=== PATIENT | female | born 1945 | race Caucasian/White ===

== ENCOUNTER → 2017-02-17 | Outpatient (CLI) | payer OTHER ==
--- NOTE | 2017-02-17 10:21 | RAD ---
Examination: X-rays of the left shoulder. Clinical history: Left shoulder pain, injured doing yard work. Technique: Three views of the left shoulder were obtained. Comparison: None available. Findings: There is a mildly comminuted, minimally displaced fracture of the proximal humerus. No additional bony or soft tissue abnormality is noted. Impression: 1. Fracture of the proximal left humerus, as described above. Reported By:
== END | disposition home or self-care (01) | DRG 556 ==
LOC: RAD 09:53
PROVIDERS: ATTEND Specialist
DX: M25.512 Pain in left shoulder (principal); M84.422A Pathological fracture, left humerus, initial encounter for fracture
CPT/HCPCS: 73030

== ENCOUNTER → 2017-02-23 | Outpatient (CLI) | payer OTHER ==
--- NOTE | 2017-02-23 12:34 | CT ---
CT left shoulder without contrast Indication: Left humeral fracture Comparison: 02/17/2017 Technique: 2 mm axial images with coronal and sagittal reformatted images of the left shoulder was pe rformed without IV contrast administration. Findings: There is a comminuted, minimally displaced fracture of the proximal left humerus involving the greater tuberosity the largest fracture fragment measures approximately 15 x 10 mm on coronal brianne ge 31. There is no fracture identified within the lesser tuberosity. No definite Hill-Sachs deformity is identified. The glenohumeral joint alignment is maintained. There is no subcortical cyst formatio n identified within the glenohumeral joint. There is no truncation of the anterior glenoid to suggest impaction injury or anterior dislocation. Coracoid process is normal. The AC joint is normal alignme nt with mild osteoarthrosis. No axillary adenopathy. No left-sided rib fracture is identified. Impression: 1.Comminuted fracture of the left humeral greater tuberosity with mild distraction of the tuberosity fracture fragments. There is no fracture extension into the lesser tuberosity or humeral neck. No CT evidence to suggest anterior or posterior dislocation injury. 2. 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 Reported By:
== END | disposition home or self-care (01) | DRG 561 ==
LOC: RAD 11:22
PROVIDERS: ATTEND Specialist
DX: S42.255 Nondisplaced fracture of greater tuberosity of left humerus (principal); X58.XXXS Exposure to other specified factors, sequela; M19.012 Primary osteoarthritis, left shoulder
CPT/HCPCS: 73200

== ENCOUNTER → 2017-03-16 | Outpatient (CLI) | payer OTHER ==
[2017-03-16 12:30] LABS: BASOPHILS # (AUTO) 0.2 X10^3/uL (0.0-0.1); BASOPHILS % (AUTO) 1.1 % (0.2-1.0); EOSINOPHILS # (AUTO) 0.4 x10^3/uL (0.0-0.2); EOSINOPHILS % (AUTO) 2.5 % (0.9-2.9); HEMATOCRIT 41.9 % (36.0-47.0); HEMOGLOBIN 14.4 g/dL (12.0-16.0); LYMPHOCYTES # (AUTO) 2.4 X10^3/uL (1.3-2.9); MEAN CORPUSCULAR HEMOGLOBIN 31.2 pg (27.0-34.0); MEAN CORPUSCULAR HGB CONC 34.3 g/dL (33.0-35.0); MEAN CORPUSCULAR VOLUME 90.8 fL (80.0-100.0); MEAN PLATELET VOLUME 8.3 fL (7.4-11.0); MONOCYTES # (AUTO) 1.1 x10^3/uL (0.3-0.8); MONOCYTES % (AUTO) 7.2 % (0.0-13.0); NEUTROPHILS # (AUTO) 11.7 x10^3/uL (2.2-4.8); NEUTROPHILS % (AUTO) 74.2 % (42.0-75.0); PLATELET COUNT 390 X10^3/uL (150.0-450.0); RED BLOOD COUNT 4.61 X10^6/uL (3.5-5.4); RED CELL DISTRIBUTION WIDTH 14.4 % (11.6-16.5); WHITE BLOOD COUNT 15.8 X10^3/uL (3.6-10.0)
[2017-03-16 12:31] LABS: BILIRUBIN,URINE NEGATIVE (NEGATIVE); BLOOD/HEMOGLOBIN,URINE 1+ (NEGATIVE); GLUCOSE, URINE NEGATIVE (NEGATIVE); KETONES,URINE NEGATIVE (NEGATIVE); LEUKOCYTE ESTERASE ,URINE 1+ (NEGATIVE); NITRITES,URINE NEGATIVE (NEGATIVE); PROTEIN,URINE 1+ (NEGATIVE); UROBILINOGEN,URINE NORMAL (NORMAL)
[2017-03-16 12:37] LABS: COLOR,URINE YELLOW (YELLOW)
[2017-03-16 12:38] LABS: APPEARANCE,URINE HAZY (CLEAR); BACTERIA,URINE TRACE /HPF (NEGATIVE); RBC,URINE 0-5 /HPF (NEGATIVE); SQUAMOUS EPITHELIAL CELL,UR RARE /HPF (NEGATIVE)
[2017-03-16 12:45] LABS: ALANINE AMINOTRANSFERASE 28 Units/L (12-78); ALBUMIN 4.3 g/dL (3.4-5.0); ALKALINE PHOSPHATASE 180 Units/L (46-116); ASPARTATE AMINO TRANSFERASE 23 Units/L (15-37); BLOOD UREA NITROGEN 21 mg/dL (7-18); CARBON DIOXIDE 28.4 mmol/L (21-32); CHLORIDE 94 mmol/L (98-107); COR NA(FOR HYPERGLY) 133 mmol/L (136-145); CREATININE 1.47 mg/dL (0.55-1.02); SODIUM 133 mmol/L (136-145); TOTAL PROTEIN 7.9 g/dL (6.4-8.2); eGFR BLACK RACES 45 (>60); eGFR NON BLACK RACES 37 (>60)
[2017-03-16 13:20] LABS: ERYTHROCYTE SEDIMENTATION RATE 17 MM/HOUR (0-20)
--- NOTE | 2017-03-17 10:55 | RAD ---
HISTORY: History of fall with humerus fracture, hypertension. Preop for shoulder surgery Study: Two-view chest Comparison: No priors Findings: Trachea is midline. The heart size is normal. There is aortic uncoiling. Increased interstitial randy ngs are present involving both lungs which appear chronic. No evidence of infiltrate, CHF, pleural fl uid or pneumothorax is seen. No acute osseous abnormality of the chest seen. IMPRESSION: No acute cardiopulmonary disease. Reported By:
== END ==
LOC: LAB 11:27
PROVIDERS: ATTEND Orthopaedic Surgery
DX: Z01.818 Encounter for other preprocedural examination (principal); Z79.899 Other long term (current) drug therapy; Z11.8 Encounter for screening for other infectious and parasitic diseases; Z01.810 Encounter for preprocedural cardiovascular examination; Z01.811 Encounter for preprocedural respiratory examination; S42.252A Displaced fracture of greater tuberosity of left humerus, initial encounter for closed fracture; X58.XXXA Exposure to other specified factors, initial encounter
CPT/HCPCS: 36415; 71020; 80053; 81001; 85025; 85652; 86140; 87640; 87641; 93005; 93010

== ENCOUNTER 2017-03-20 07:30 | Day surgery (SDC) | payer OTHER ==
[~2017-03-20 07:30] MED LIST: HYDROGEN PEROXIDE 3% ONE
[2017-03-20] MEDS ORDERED: D5 LR 1000 ML 1,000 ML IV ONE (07:31)
[2017-03-20 08:07] LABS: ALANINE AMINOTRANSFERASE 30 Units/L (12-78); ALKALINE PHOSPHATASE 162 Units/L (46-116); ASPARTATE AMINO TRANSFERASE 27 Units/L (15-37); BLOOD UREA NITROGEN 16 mg/dL (7-18); CALCIUM 10.2 mg/dL (8.5-10.1); CARBON DIOXIDE 26.1 mmol/L (21-32); CHLORIDE 95 mmol/L (98-107); COR NA(FOR HYPERGLY) 131 mmol/L (136-145); CREATININE 1.23 mg/dL (0.55-1.02); SODIUM 131 mmol/L (136-145); TOTAL PROTEIN 7.6 g/dL (6.4-8.2); eGFR BLACK RACES 56 (>60); eGFR NON BLACK RACES 46 (>60)
[2017-03-20] MEDS: BACTROBAN OINT ONE ×2 (08:13→09:32)
[2017-03-20] MEDS ORDERED: NS IRRIGATION 1000 ML 1,000 ML with BACITRACIN VIAL 50,000 UNT IR ONE ×4 (08:13)
[2017-03-20] MEDS: NS 50 ML IV + SPIKE MINIBAG* 50 ML IV ONE ×2 (08:13→09:00)
[2017-03-20] MEDS: ANCEF VIAL 1 GM ONE ×2 (08:13→09:00)
[2017-03-20] MEDS: FENTANYL INJ 250 mcg ONE ×2 (08:14→09:05)
[2017-03-20] MEDS ORDERED: NAROPIN 0.75% EPI ONE (08:15)
[2017-03-20] MEDS ORDERED: XYLOCAINE 2 % (PLAIN) ONE ×2 (08:15→14:48)
[2017-03-20 08:32] LABS: BASOPHILS # (AUTO) 0.1 X10^3/uL (0.0-0.1); BASOPHILS % (AUTO) 0.5 % (0.2-1.0); EOSINOPHILS # (AUTO) 0.4 x10^3/uL (0.0-0.2); EOSINOPHILS % (AUTO) 3.1 % (0.9-2.9); HEMATOCRIT 40.1 % (36.0-47.0); LYMPHOCYTES # (AUTO) 2.4 X10^3/uL (1.3-2.9); MEAN CORPUSCULAR HEMOGLOBIN 31.6 pg (27.0-34.0); MEAN CORPUSCULAR VOLUME 90.3 fL (80.0-100.0); MEAN PLATELET VOLUME 8.5 fL (7.4-11.0); MONOCYTES # (AUTO) 1.1 x10^3/uL (0.3-0.8); MONOCYTES % (AUTO) 8.4 % (0.0-13.0); NEUTROPHILS # (AUTO) 8.8 x10^3/uL (2.2-4.8); PLATELET COUNT 362 X10^3/uL (150.0-450.0); RED BLOOD COUNT 4.44 X10^6/uL (3.5-5.4); RED CELL DISTRIBUTION WIDTH 13.9 % (11.6-16.5); WHITE BLOOD COUNT 12.8 X10^3/uL (3.6-10.0)
[2017-03-20] MEDS ORDERED: LR 1000 ML IV 1,000 ML IV ONE (10:02)
[2017-03-20] MEDS ORDERED: DILAUDID INJ IVP PRN (11:26)
[2017-03-20] MEDS ORDERED: PHENERGAN INJ 25 MG IVP PRN (11:26)
[2017-03-20] MEDS ORDERED: REGLAN INJ 10 MG VIAL IVP PRN (11:26)
[2017-03-20] MEDS ORDERED: BENADRYL INJ 50 MG VIAL IVP PRN (11:26)
[2017-03-20] MEDS ORDERED: ZOFRAN INJ 4 MG VIAL IVP PRN (11:26)
[2017-03-20] MEDS ORDERED: PERCOCET TAB 5/325 MG PO PRN (11:33)
--- NOTE | 2017-03-20 11:41 | OR.GENERIC ---
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 Was seen earlier by Dr. Mynor Hercules. Treated conservatively initially, continued to have pain and inability to do actively to ABduct the right shoulder. CT revealed an comminuted greater tuberosity fracture which was displaced less than 5 mm. During the time of follow-up a week later she continued to have symptoms and then repeat x-rays showed progressive displacement which was more than 1 cm. It was advised to proceed with surgical intervention. Various methods were discussed with her. Keeping in mind her comminuted fragments it was decided to proceed with tension band wiring with sutures with or without suture anchors. Complications including but not limited to infection, Sub-acromial impingement, Axillary Nerve injury palsy, Loss of reduction, Need for further surgery, Hardware failure, Stiffness, Pain, Avascular necrosis of humeral head, nonunion , DVT, PE, Risks of Anesthesia including heart attack, stroke and were explained to her. She understood and would like to proceed with surgery. Patient was seen in the preoperative holding area. Limb was marked. Patient got a interscalene block. Patient got appropriate preoperative antibiotic. Consent was revisited. Patient was brought to the operating room. General anesthesia with endo- tracheal intubation was done. She was placed in a modified beach-chair position. All bony prominences were well padded. Examination of the right shoulder was completed under anesthesia. The right upper limb was Prepped and draped in standard sterile fashion. Have a well-padded height adjustable Frey stand was used to hold the arm during the case. C-arm was used throughout the case. The jeramy- superior deltoid-splitting approach used a skin incision made along Langers lines at the anterolateral border of the acromion. The deltoid was split in the direction of its fibers for 3 or 4 cm, and an antipropagation suture was placed at the distal end of the split to prevent axillary nerve injury. Fracture exposure was facilitated by gentle deltoid retraction and thorough lysis of subacromial adhesions and removal of inflamed soft tissues. On clear identification of the tuberosity fragment and the fracture bed, the fragment was mobilized with traction sutures. The traction sutures were placed in supraspinatus and infraspinatus tendon. The fracture bed was cleared of hematoma. Greater tuberosity fracture fragment was retracted posteriorly and superiorly. Reduction achieved with traction on the stay suture. The fragments were provisionally held in place with 2 K wires. The comminuted fracture fragments had united into a large fragemnt and it was big enough to take screw fixation. . An AP drill hole was made for distal anchorage of tension band sutures. Internal fixation was performed using #5 nonabsorbable sutures through bone tunnels using a [id number] fashion. 2 3.5 mm screws placed into the fragment and it showed well compressed fracture fragments. The associated rotator cuff and interval tears were repaired with #0 non- absorbable sutures. Final images were obtained to check for reduction and fixation. This found to be a secure anatomical fixation. Thorough irrigation was done and wound was closed in layers. She was placed in a shoulder immobilzer post-operatively. Elbow, wrist, hand ROM is started immediately. Patient was woken up from surgery. She was extubated and was awakened. She was shifted to the PACU in stable condition. Postoperative x-rays were obtained which were satisfactory. Instructions regarding compliance of using shoulder immobilizer, restricted shoulder movements to further device was discussed with her.
--- NOTE | 2017-03-20 12:21 | RAD ---
HISTORY: Postop Study: Left shoulder series Comparison: None Findings: There are orthopedic surgical screws extending along the greater tuberosity into the humeral head whi ch appear in good position with some ill-defined linear calcifications just lateral to the greater tu berosity. There is soft tissue swelling and edema around the joint with skin clips laterally. These A C joint is intact. IMPRESSION: Status post ORIF of the left greater tuberosity with calcifications or small bony fragments adjacent to the greater tuberosity and postop changes along the left shoulder. Reported By:
[2017-03-20 13:09] VITALS: BP 137/74
[2017-03-20] MEDS ORDERED: QUELICIN (OR ANECTINE) ONE (14:48)
[2017-03-20] MEDS ORDERED: ZOFRAN INJ 4 MG VIAL ONE (14:48)
[2017-03-20] MEDS ORDERED: SUPRANE IN ONE (14:48)
[2017-03-20] MEDS ORDERED: NEOSTIGMINE INJ ONE (14:48)
[2017-03-20] MEDS ORDERED: NORCURON INJ 10 MG VIAL ONE (14:48)
[2017-03-20] MEDS ORDERED: ROBINUL ONE (14:48)
[2017-03-20] MEDS ORDERED: VERSED ONE (14:48)
[2017-03-20] MEDS ORDERED: EPHEDRINE SULFATE INJ ONE (14:48)
[2017-03-20] MEDS ORDERED: REGLAN INJ 10 MG VIAL ONE (14:48)
== END 2017-03-20 13:15 | disposition home or self-care (01) | DRG 494 ==
LOC: SURG1 07:30
PROVIDERS: ATTEND Orthopaedic Surgery
PROC: 0LQ20ZZ Repair Left Shoulder Tendon, Open Approach (ICD-10-PCS; 2017-03-20)
PROC: 30233N1 Transfusion of Nonautologous Red Blood Cells into Peripheral Vein, Percutaneous Approach (ICD-10-PCS; 2017-03-20)
PROC: 0PSD04Z Reposition Left Humeral Head with Internal Fixation Device, Open Approach (ICD-10-PCS; principal; 2017-03-20 11:00)
DX: S42.252A Displaced fracture of greater tuberosity of left humerus, initial encounter for closed fracture (principal); X58.XXXA Exposure to other specified factors, initial encounter; M25.512 Pain in left shoulder; M75.102 Unspecified rotator cuff tear or rupture of left shoulder, not specified as traumatic; Z01.810 Encounter for preprocedural cardiovascular examination; Z01.812 Encounter for preprocedural laboratory examination
CPT/HCPCS: 36415; 73030; 76000; 80053; 85025; A4216; A4222; J0330; J0690; J2001; J2250; J2405; J2710; J2765; J3010; J3490; J7120

== ENCOUNTER → 2017-09-05 | Outpatient (CLI) | payer OTHER | LOC: RAD 10:11 | PROVIDERS: ATTEND Internal Medicine | DX: Z12.31 Encounter for screening mammogram for malignant neoplasm of breast (principal) | CPT/HCPCS: 77067 ==